=== PATIENT | male | born 1945 | race Caucasian/White ===

== ENCOUNTER 2021-12-12 06:17 | Day surgery (SDC) | payer MEDICARE, SELFPAY ==
[2021-12-12] MEDS: Lactated Ringers 1,000 ML 15 ML IV (06:40)
[2021-12-12 06:54] VITALS: BP 154/90; PULSE 61; RESP 16; TEMP 36.4; O2SAT 95; BMI 24.0
--- NOTE | 2021-12-12 07:49 | PCM.HP.STD ---
HPI - General HPI Narrative ADDISON ROD, is a 76 M who presents for placement for Gel Matrix. PFSH Medical History Cancer Hypertension Wears glasses White coat syndrome with hypertension Home Medications Prostate 2.4 1 cap PO DAILY 12/05/21 [History Last Taken Unknown] tamsulosin 0.4 mg PO DAILY 12/05/21 [History Last Taken Unknown] triamterene-hydrochlorothiazid 1 tab PO DAILY 12/05/21 [History Last Taken Unknown] ciprofloxacin HCl [Cipro] 500 mg PO BID #14 tab 12/12/21 [Rx Last Taken Unknown] Allergy/AdvReac Type Severity Reaction Status Date / Time No Known Allergies Allergy Verified 12/05/21 14:55 Surgical History Hx of cataract surgery Social History Smoking Status: Never smoker Vital Signs Vital Signs Vital Signs: 12/12/21 06:54 Temperature 97.5 F L Temperature Source Temporal Pulse Rate 61 Respiratory Rate 16 Respiratory Pattern Normal Blood Pressure 154/90 H Blood Pressure Mean 111 Blood Pressure Source Monitor Blood Pressure Position Semi-Fowlers Blood Pressure Location Left Arm Pulse Ox 95 Oxygen Delivery Method Room Air Weight Weight: 75.9 kg Body Mass Index (BMI) 24.0
--- NOTE | 2021-12-12 07:50 | PCM.DC ---
Discharge Instructions Diet Discharge Diet: No restrictions Activity Discharge Activity: Return to Normal Activity and May Not Drive (while taking narcotic pain medications.) Discharge Plan Admission Primary Reason for Your Visit: placement of spacer gel matrix Attending Provider: Escobar Tucker Primary Care Provider: Clifton Bautista Jr. Discharge Orders/Prescriptions Prescriptions: New ciprofloxacin HCl [Cipro] 500 mg tablet 500 mg PO BID Qty: 14 RF: 0 Continued tamsulosin 0.4 mg capsule 0.4 mg PO DAILY RF: 0 triamterene-hydrochlorothiazid 37.5-25 mg Tablet 1 tab PO DAILY RF: 0 Prostate 2.4 1,200-15-35 [id number] Capsule 1 cap PO DAILY RF: 0 Referrals / Follow Up: Clifton Bautista Jr., MD [Primary Care Provider] - Disposition Disposition (needs filled in before D/C Order can be placed): Home, Self Care
[2021-12-12] MEDS: Cefazolin 2 GM in 0.9% Normal Saline 100 ML IV (08:04)
--- NOTE | 2021-12-12 08:24 | PCM.OPRPT ---
Report of Operation Date of Procedure: 12/12/21 Pre-Operative Diagnosis: prostate cancer Post-Operative Diagnosis: same Surgery/Procedure Performed:: placement of spacer gel matrix for radiation therapy Description of Surgical Findings:: Patient was taken back to the operating room after smooth induction of anesthesia he was placed supine on the table. The genitals and perineum were prepped and draped in usual sterile fashion. I then introduced a biplanar ultrasound probe into the rectum and performed ultrasonography and identified the Denonvilliers' fascia the prostate mid base and apex and seminal vesicles. The spacer gel mix was then prepared on the back table per manufactures instruction. Under ultrasound guidance in the midline perineum a bevel needle down we advanced through the perineum below the prostate into the space of Denonvilliers' fascia. This space which could be identified by ultrasound with a bright white layer between the prostate and the rectum. I then injected a puff of normal saline to identify the space further. After I confirmed that the needle was in the correct space in the mid prostate and the space of Denonvilliers' fascia between the rectum and the prostate. Then over the course of 15 seconds the gel matrix was injected slowly there was nice separation between the prostate and the rectum at the gel matrix was injected. The position of the gel matrix was confirmed by ultrasound. Then the injection needle was removed intact. Patient's perineum was cleaned patient was taken out of stirrups and then taken back to the PACU in good condition. Surgeon: bill Type of Anesthesia: General Admit VTE Documentation VTE Present on Admission: No VTE Mechan Device Prophylaxis: SCD's VTE Pharm Prophylaxis ordered?: No
[2021-12-12 08:31] VITALS: BP 112/64; BP 154/90; PULSE 56; RESP 12; TEMP 36.3; O2SAT 94
[2021-12-12 08:45] VITALS: BP 121/75; BP 154/90; PULSE 52; RESP 16; O2SAT 95
[2021-12-12 09:00] VITALS: BP 131/86; BP 154/90; PULSE 52; RESP 14; TEMP 36.4; O2SAT 94
[2021-12-12 09:14] VITALS: BP 127/76; BP 154/90; PULSE 51; RESP 16; TEMP 36.4; O2SAT 96
== END 2021-12-12 09:42 | disposition home or self-care (01) ==
LOC: SDC 06:23 → AC 06:24
PROVIDERS: PCP Internal Medicine; Referring Provider Urology; Visit Provider Urology
PROC: (CPT 55874; principal; 2021-12-12 08:15)
DX: C61 Malignant neoplasm of prostate (principal); I10 Essential (primary) hypertension; Z79.899 Other long term (current) drug therapy
CPT/HCPCS: 55874; 00902; J7120; J2405